=== PATIENT | female | born 1960 | race Caucasian/White ===

== ENCOUNTER 2020-06-07 11:43 | Emergency (ER) | payer OTHER ==
[~2020-06-07] VITALS: Ht 172.7 cm; Wt 90.0 kg
[2020-06-07] MEDS ORDERED: MORPHINE SULFATE 4 MG/ML VIAL. IM ONE (13:30)
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
[2020-06-07 15:30] VITALS: BP 114/61
[2020-06-07] MEDS ORDERED: OXYC-325 PO (16:08)
== END 2020-06-07 16:32 | disposition home or self-care (01) ==
LOC: ER 11:43
DX: S32.048A Other fracture of fourth lumbar vertebra, initial encounter for closed fracture (principal); M54.5 Low back pain; M25.512 Pain in left shoulder; Z90.710 Acquired absence of both cervix and uterus; V49.88XA Car occupant (driver) (passenger) injured in other specified transport accidents, initial encounter; Y93.89 Activity, other specified; Y92.413 State road as the place of occurrence of the external cause; Y99.8 Other external cause status
CPT/HCPCS: 72100; 72131; 73030; 96372; 99284; J2270